=== PATIENT | female | born 1980 | race Caucasian/White ===

== ENCOUNTER 2022-08-11 19:31 | Emergency (ER) | payer SELFPAY ==
[2022-08-11 19:43] VITALS: BP 120/81; PULSE 108; RESP 20; TEMP 36.8; O2SAT 98
--- NOTE | 2022-08-11 19:51 | ED.EAR ---
HPI - Ear Problem General Chief complaint: Ear Stated complaint: Bilateral Ear Irritation Source: patient Mode of arrival: ambulatory Limitations: no limitations History of Present Illness HPI Narrative: 41-year-old female presented for complaint of right ear pain for about 1 week. Endorses pain is worse today. She states I think I have ear cancer. Endorses feeling tender nodules in front of the ear and on the ear. States she attempted to drain it with a kit. Denies drainage from the ear, tinnitus, dizziness, nausea, vomiting, sinus congestion or pressure, fevers or chills. She is not taking anything for symptoms. She does not have a PCP. MD Complaint: ear pain Related Data Home Medications Medication Instructions Recorded Confirmed allopurinol 300 mg tablet 300 mg PO DAILY 08/11/22 08/11/22 fluoxetine 20 mg capsule 80 mg PO DAILY 08/11/22 08/11/22 lamotrigine 100 mg tablet 100 mg PO BID 08/11/22 08/11/22 Allergies Allergy/AdvReac Type Severity Reaction Status Date / Time No Known Allergies Allergy Verified 08/11/22 19:53 Review of Systems Review of Systems: CONSTITUTIONAL: Denies malaise, chills, or fever. EYES: Denies visual changes, redness, or discharge. ENT: Denies rhinorrhea, congestion, sinus pain, and sore throat. Reports ear pain CARDIOVASCULAR: Denies chest pain, palpitations, or edema. RESPIRATORY: Denies cough or dyspnea. GASTROINTESTINAL: Denies abdominal pain, nausea, vomiting, diarrhea SKIN: Denies rash or itching. MUSCULOSKELETAL: Denies myalgia. NEUROLOGIC: Denies headache. All systems reviewed & are unremarkable except as noted in HPI and below PMFSH Past Medical History Medical History (Updated 08/11/22 @ 20:02 by Marlena Carl, HESHAM) Anxiety Comments At time of signature, agree with nursing past medical, surgical, social and family history. There is no relevant family history pertinent to the presenting complaint Exam Narrative: GENERAL: Well-appearing, well-nourished, and in no acute distress. HEAD: Normocephalic EYES: PERRLA, conjunctivae clear ENT: Nares clear. Mucous membranes moist. TMs pearly norris with light reflex bilaterally; no tragal or mastoid tenderness. No lymph node swelling. Oropharynx not erythematous without lesions. Tonsils not enlarged and without exudate, no drooling, no hoarseness, no trismus, uvula midline. NECK: Supple. No lymphadenopathy CHEST: Clear to auscultation, breath sounds equal. No wheezing, rhonchi, rales, or stridor. No respiratory distress, speaks in full sentences. HEART: Regular rate and rhythm. No murmur heard. SKIN: Warm, dry, Right outer ear helix anterior aspect with approx <0.5cm mildly erythematous scabbed tender nodule, no induration or fluctuance, no active drainage. NEURO: Alert and oriented x3. PSYCH: flat affect, smiling Course Course Emergency Course: Patient is aware of diagnosis, understands and agrees to treatment plan. Anticipatory guidance given. Patient agrees to follow-up as directed and is aware of reasons to seek care at the emergency department. Portions of this record may have been created with voice recognition software Level of Care: Express Care Visit Vital Signs Vital signs: Vital Signs Temperature 98.2 F 08/11/22 19:43 Pulse Rate 108 H 08/11/22 19:43 Respiratory Rate 20 08/11/22 19:43 Blood Pressure 120/81 08/11/22 19:43 Pulse Oximetry 98 08/11/22 19:43 Oxygen Delivery Room Air 08/11/22 19:43 Temperature 98.2 F 08/11/22 19:43 Pulse Rate 108 H 08/11/22 19:43 Respiratory Rate 20 08/11/22 19:43 Blood Pressure 120/81 08/11/22 19:43 Pulse Oximetry 98 08/11/22 19:43 Oxygen Delivery Room Air 08/11/22 19:43 Reviewed Medical Decision Making MDM Narrative Medical decision making narrative: PE showed abscess vs other. No fluctuance, pt is aware no indication for I&D. Discussed possible etiologies with pt. Advised supportive measures and signs/symptoms to go to the ER
== END 2022-08-11 19:56 | disposition home or self-care (01) ==
PROVIDERS: Emergency Provider Nurse Practitioner Family
DX: R22.0 Localized swelling, mass and lump, head (principal)
CPT/HCPCS: 99203; G0463